=== PATIENT | male | born 1985 | race American Indian/Alaskan Native ===

== ENCOUNTER 2016-12-14 15:00 | Emergency (ER) | payer BC ==
[2016-12-14 15:38] LABS: Hematocrit 46.9 % (35.5-45.6); Hemoglobin 14.7 gm/dl (11.8-15.2); Mean Corpuscular HGB Conc 31 % (32-34); Mean Corpuscular Hemoglobin 27 pg (28-32); Mean Corpuscular Volume 86 fl (84-94); Platelet Count 241 K/mm3 (140-440); Red Blood Count 5.46 M/mm3 (3.65-5.03); Red Cell Distribution Width 13.6 % (13.2-15.2); White Blood Count 11.9 K/mm3 (4.5-11.0)
[2016-12-14 15:57] LABS: Anion Gap 16 mmol/L; BUN/Creatinine Ratio 13; Blood Urea Nitrogen 12 mg/dL (9-20); Calcium 9.2 mg/dL (8.4-10.2); Carbon Dioxide 26 mmol/L (22-30); Chloride 101.2 mmol/L (98-107); Glucose 90 mg/dL (75-100); Potassium 4.2 mmol/L (3.6-5.0); Sodium 139 mmol/L (137-145)
--- NOTE | 2016-12-14 16:22 | Emergency Department Report ---
Chief Complaint: High BP Stated Complaint: ELEVATED BLOOD PRESSURE Time Seen by Provider: 12/14/16 15:20 - HPI History of Present Illness: This is a 31-year-old male who reports that he was at work today and he started having a headache with dizziness and nurse at work checked his blood pressure and blood pressure was 174 100. Patient concerned because he is a family history of high blood pressure. He denies any shortness of breath or chest pain. His headache right now is 2 out of 10. Denies any nausea or vomiting. Denies any dizziness. He was told in the past that his blood pressure was elevated. Patient said he would like to be referred to a primary care doctor here because he just moved here. Patient reports that they sent him here to be checked and that he cannot come back to work until he gets a note to say that he is okay. Denies any fever or chills. Denies any abdominal or back pain. - ROS Review of Systems: All systems are negative unless stated in HPI above - Exam Vital Signs: Vital Signs 12/14/16 15:11 Temperature 98 F Pulse Rate 66 Respiratory 18 Rate Blood Pressure 143/106 O2 Sat by Pulse 100 Oximetry Physical Exam: Gen.: This is a 31-year-old male well-nourished well-developed in no acute distress Cardiovascular: S1, S2. Regular rate and rhythm Mini neurological: GCS of 15, alert and oriented 3, no facial drooping, gait is normal, speech is clear. Negative Romberg MSE screening note: Focused history and physical exam performed. Due to findings the following was ordered: ED Medical Decision Making - Lab Data Result diagrams: 12/14/16 15:27 12/14/16 15:27 - Medical Decision Making MDM: Patient screened by provider in triage area. Appropriate protocol initiated and patient to be seen in main ED by ED Disposition for MSE Condition: Stable Referrals: PRIMARY CARE, [Primary Care Provider] - 3-5 Days
[2016-12-14 18:11] LABS: Bilirubin,Urine NEG (Negative); Blood,Urine NEG (Negative); Ketones,Urine NEG (Negative); Leukocyte Esterase,Urine SM (Negative); Mucus,Urine FEW /HPF; Nitrite,Urine NEG (Negative); Protein,Urine <15 mg/dL mg/dL (Negative); Urobilinogen,Urine < 2.0 mg/dL (<2.0)
--- NOTE | 2016-12-14 20:17 | Emergency Department Report ---
HPI - General Chief Complaint: High BP Time Seen by Provider: 12/14/16 16:19 - HPI HPI: This is a 31-year-old [place] male presents to the emergency department with complaint of elevated blood pressure that caused him to have to leave work. He says it was 174/100. He has some intermittent headaches and sometimes this will be called by elevated blood pressure. He went to the work nurse and was found have elevated blood pressure and was told that he needed to see a physician before he is allowed to return to work. He no longer has any headache. He denies any vision change, slurred speech or any neurological deficits. He denies any chest pain or shortness of breath. He is not a tobacco smoker denies any illicit drug use. He does drink one energy drink per day and eats processed and or fast foods. He says that this is the second time this year that he has had an episode where he had elevated blood pressure but otherwise was never diagnosed with hypertension. It does run in his family. He does not have a primary care physician. ED Past Medical Hx - Past Medical History Previous Medical History?: No - Surgical History Past Surgical History?: Yes Additional Surgical History: left knee - Social History Smoking Status: Never Smoker Substance Use Type: None - Medications Home Medications: Home Medications Medication Instructions Recorded Confirmed Last Taken Type No Known Home Medications [No 12/14/16 12/14/16 Unknown History Reported Home Medications] ED Review of Systems ROS: Stated complaint: ELEVATED BLOOD PRESSURE Other details as noted in HPI Comment: All other systems reviewed and negative Constitutional: denies: chills, fever Eyes: denies: eye pain, eye discharge, vision change ENT: denies: ear pain, throat pain Respiratory: denies: cough, shortness of breath, wheezing Cardiovascular: denies: chest pain, palpitations Gastrointestinal: denies: abdominal pain, nausea, diarrhea Genitourinary: denies: urgency, dysuria Musculoskeletal: denies: back pain, joint swelling, arthralgia Skin: denies: rash, lesions Neurological: headache. denies: numbness Physical Exam - Physical Exam Vital Signs: Vital Signs 12/14/16 12/14/16 12/14/16 15:11 18:16 18:30 Temperature 98 F Pulse Rate 66 72 70 Respiratory 18 12 Rate Blood Pressure 143/106 149/95 O2 Sat by Pulse 100 99 Oximetry 12/14/16 12/14/16 19:00 19:30 Temperature Pulse Rate 64 72 Respiratory 15 12 Rate Blood Pressure 130/92 134/96 O2 Sat by Pulse 99 98 Oximetry Physical Exam: GENERAL: The patient is well-developed well-nourished. HENT: Normocephalic. Atraumatic. Patient has moist mucous membranes. EYES: Extraocular motions are intact. Pupils equal reactive to light bilaterally. No nystagmus. NECK: Supple. Trachea is midline. CHEST/LUNGS: Clear to auscultation. There is no respiratory distress noted. HEART/CARDIOVASCULAR: Regular. There is no tachycardia. There is no gallop rub or murmur. ABDOMEN: Abdomen is soft, nontender. Patient has normal bowel sounds. There is no abdominal distention. SKIN: Skin is warm and dry. NEURO: The patient is awake, alert, and oriented. The patient is cooperative. The patient has no focal neurologic deficits. The patient has normal speech. MUSCULOSKELETAL: There is no tenderness or deformity. There is no limitation range of motion. There is no evidence of acute injury. ED Course Vital Signs 12/14/16 12/14/16 12/14/16 15:11 18:16 18:30 Temperature 98 F Pulse Rate 66 72 70 Respiratory 18 12 Rate Blood Pressure 143/106 149/95 O2 Sat by Pulse 100 99 Oximetry 12/14/16 12/14/16 19:00 19:30 Temperature Pulse Rate 64 72 Respiratory 15 12 Rate Blood Pressure 130/92 134/96 O2 Sat by Pulse 99 98 Oximetry ED Medical Decision Making - Lab Data Result diagrams: 12/14/16 15:27 12/14/16 15:27 - Medical Decision Making 31-year-old male presents after he had a headache earlier today and was found to have elevated blood pressure and had to leave work. His blood pressure is now at a much more reasonable level without any antihypertensives or any intervention. He currently does not have any headache and is asymptomatic. There is no focal, motor or sensory deficits and his cranial nerves are intact. For all these reasons I did not feel he needed CT imaging of the head. Since his blood pressure is much more reasonable, I do not want to cause hypotension for intermittent elevated blood pressure readings. Therefore instead of starting antihypertensive medication, he will try and cut out the caffeinated products and will try to eat lower salt and less processed foods. He will keep a blood pressure log. If this is not working and he still has elevated blood pressure, or has any complaints/distress, he will return to the emergency department. Otherwise he was given multiple referrals for primary care. Critical Care Time: No Critical care attestation.: If time is entered above; I have spent that time in minutes in the direct care of this critically ill patient, excluding procedure time. ED Disposition Clinical Impression: Elevated blood pressure reading Disposition: DC- TO HOME OR SELFCARE Is pt being admited?: No Condition: Stable Instructions: Low Sodium Diet (ED), Hypertension (ED) Additional Instructions: Please follow up with a primary care physician in the next few days. Try and stay away from foods that are high in salt and caffeinated products to help with your blood pressure. Keep a blood pressure log. Return to the emergency Department with any worsening of your symptoms or any acute distress. Referrals: PRIMARY CARE, [Primary Care Provider] - 3-5 Days VANESA MAGUIRE MD [Staff Physician] - 3-5 Days [facility] [Outside] - 3-5 Days [facility] [Outside] - 3-5 Days Forms: Work/School Release Form(ED) Time of Disposition: 20:17
[2016-12-14 20:57] VITALS: BP 130/94
== END 2016-12-14 20:59 | disposition home or self-care (01) ==
LOC: ED 15:00
DX: R03.0 Elevated blood-pressure reading, without diagnosis of hypertension (principal)
CPT/HCPCS: 36415; 80048; 81001; 85027; 93005; 93010; 99283